=== PATIENT | male | born 1955 | race Caucasian/White ===

== ENCOUNTER 2024-04-12 06:50 | Inpatient (IN) | payer OTHER, MEDICARE ==
[~2024-04-12] VITALS: Ht 182.9 cm; Wt 104.3 kg
[2024-04-12 06:50] VITALS: BP_SYST 199; PULSE 102; RESP 18; TEMP 97.2; O2SAT 98
[2024-04-12] MEDS ORDERED: iohexoL 350 mgI/mL, 100 ML INFUS..BTL IV ONE (07:08)
[2024-04-12] MEDS ORDERED: niCARdipine 25 MG in D5W 240 ML IV PRN (07:15)
[2024-04-12] MEDS ORDERED: SITA100T11 PO (07:27)
[2024-04-12] MEDS ORDERED: EMPA10TA PO (07:27)
[2024-04-12] MEDS ORDERED: LOSA-415 PO (07:27)
[2024-04-12] MEDS ORDERED: NIFE-129 PO (07:27)
[2024-04-12] MEDS ORDERED: LIP40 PO (07:27)
[2024-04-12] MEDS ORDERED: ASA81 PO (07:27)
[2024-04-12] MEDS ORDERED: OMEP20CA15 PO (07:27)
[2024-04-12] MEDS ORDERED: METF-518 PO (07:27)
[2024-04-12] MEDS ORDERED: DICL150D9 TP (07:27)
[2024-04-12] MEDS ORDERED: GLIM2TAB PO (07:27)
[2024-04-12] MEDS ORDERED: NEU300 PO (07:27)
[2024-04-12] MEDS ORDERED: NITSL SL (07:27)
[2024-04-12] MEDS ORDERED: TICA90TA PO (07:27)
[2024-04-12] MEDS ORDERED: LABETALOL HCL 20 MG/4 ML CARTRIDGE IVP ONE (07:33)
[2024-04-12] MEDS: LABETALOL HCL 20 MG/4 ML CARTRIDGE IVP ONE (07:35)
[2024-04-12 07:40] LABS: BASOPHILS % (AUTO) 0.3 % (0.0-2.0); EOSINOPHILS # (AUTO) 0.2 K/uL (0.0-0.4); EOSINOPHILS % (AUTO) 2.9 % (0.0-4.0); HEMATOCRIT 50.1 % (36-54); HEMOGLOBIN 16.6 g/dL (14.0-18.0); LYMPHOCYTES # (AUTO) 2.1 K/uL (1.0-5.5); LYMPHOCYTES % (AUTO) 32.4 % (20.5-51.5); MEAN CORPUSCULAR HEMOGLOBIN 29 pg (27-31); MEAN CORPUSCULAR HGB CONC 33 % (32-36); MEAN CORPUSCULAR VOLUME 89 fL (79.0-98.0); MONOCYTES # (AUTO) 0.7 K/uL (0.0-1.0); MONOCYTES % (AUTO) 11.2 % (1.7-9.3); NEUTROPHILS # (AUTO) 3.5 K/uL (1.8-7.7); NEUTROPHILS % (AUTO) 53.2 % (40.0-70.0); PLATELET COUNT (AUTO) 161 K/uL (130-430); RED BLOOD CELL COUNT(AUTO) 5.64 MIL/uL (4.2-6.2); RED CELL DISTRIBUTION WIDTH 13.7 % (9.0-15.0); WHITE BLOOD COUNT (AUTO) 6.6 K/uL (4.8-10.8)
[2024-04-12] MEDS: ASPIRIN 81 MG TAB.CHEW PO ONE ×2 (08:44→18:30)
[2024-04-12] MEDS: CLOPIDOGREL BISULFATE 75 MG TABLET PO ONE (08:44)
[2024-04-12 08:50] LABS: ALANINE AMINOTRANSFERASE 26 U/L (12-78); ANION GAP 9 (5-15); ASPARTATE AMINOTRANSFERASE 18 U/L (10-37); BILIRUBIN,DIRECT 0.1 mg/dL (0.0-0.3); CALCIUM 8.6 mg/dL (8.4-11.0); CARBON DIOXIDE 28 mmol/L (23-29); CHLORIDE 105 mmol/L (98-107); CREATININE 0.78 mg/dL (0.55-1.30); GFR AFRICAN AMERICAN 127 mL/min (>90); GLUCOSE 162 mg/dL (74-106); POTASSIUM 3.9 mmol/L (3.5-5.1); SODIUM SERUM 142 mmol/L (136-145); TOTAL BILIRUBIN 0.4 mg/dL (0.0-1.0); TOTAL PROTEIN, SERUM 7.4 g/dL (6.4-8.3); UREA NITROGEN, BLOOD 16 mg/dL (8-21)
[2024-04-12 08:52] LABS: GFR NON AFRICAN-AMERICAN 105 mL/min (>90)
[2024-04-12 10:07] VITALS: BP_SYST 155; PULSE 92; RESP 24; TEMP 99; O2SAT 95
[2024-04-12 12:25] VITALS: BP_SYST 163; PULSE 91; RESP 20; TEMP 97.9; O2SAT 96
[2024-04-12 16:00] VITALS: BP_SYST 159; PULSE 88; RESP 24; TEMP 98.1; O2SAT 96
[2024-04-12] MEDS ORDERED: NITROGLYCERIN 0.4 MG TAB.SUBL SL PRN (18:30)
[2024-04-12] MEDS ORDERED: ONDANSETRON HCL 4 MG/2 ML VIAL IVP PRN (18:30)
[2024-04-12] MEDS ORDERED: CLOPIDOGREL BISULFATE 75 MG TABLET PO SCH (18:30)
[2024-04-12] MEDS: LORazepam 2 MG/ML VIAL IVP PRN (19:16)
[2024-04-12 20:30] VITALS: BP_SYST 155; PULSE 87; RESP 20; TEMP 98.1; O2SAT 94
[2024-04-12] MEDS: TICAGRELOR 90 MG TABLET PO SCH (21:00)
[2024-04-12] MEDS ORDERED: DICLOFENAC SODIUM TP SCH (21:00)
[2024-04-12] MEDS: GABAPENTIN 300 MG CAPSULE PO SCH (21:23)
[2024-04-12] MEDS: ATORVASTATIN 20 MG TABLET PO SCH (21:23)
[2024-04-12] MEDS: NORMAL SALINE 5 ML DISP.SYRIN IVF SCH (21:27)
[2024-04-12] MEDS: INSULIN REGULAR, HUMAN 100 UNITS/ML, 3 ML VIAL (humuLIN R) SUBCUT PRN (21:45)
[2024-04-13] VITALS: BP_SYST 144; PULSE 86; RESP 20; TEMP 97.7; O2SAT 94
[2024-04-13 08:00] VITALS: O2SAT 100
[2024-04-13 08:24] LABS: BASOPHILS % (AUTO) 0.2 % (0.0-2.0); EOSINOPHILS # (AUTO) 0.1 K/uL (0.0-0.4); EOSINOPHILS % (AUTO) 1.4 % (0.0-4.0); HEMOGLOBIN 17.6 g/dL (14.0-18.0); LYMPHOCYTES # (AUTO) 1.3 K/uL (1.0-5.5); LYMPHOCYTES % (AUTO) 15.7 % (20.5-51.5); MEAN CORPUSCULAR HEMOGLOBIN 30 pg (27-31); MEAN CORPUSCULAR HGB CONC 33 % (32-36); MEAN CORPUSCULAR VOLUME 89 fL (79.0-98.0); MONOCYTES % (AUTO) 11.9 % (1.7-9.3); NEUTROPHILS # (AUTO) 5.8 K/uL (1.8-7.7); NEUTROPHILS % (AUTO) 70.8 % (40.0-70.0); PLATELET COUNT (AUTO) 171 K/uL (130-430); RED BLOOD CELL COUNT(AUTO) 5.97 MIL/uL (4.2-6.2); RED CELL DISTRIBUTION WIDTH 13.6 % (9.0-15.0); WHITE BLOOD COUNT (AUTO) 8.2 K/uL (4.8-10.8)
[2024-04-13 08:29] VITALS: BP_SYST 125; PULSE 97; RESP 18; TEMP 97.5; O2SAT 100
[2024-04-13 08:46] LABS: CALCIUM 9.4 mg/dL (8.4-11.0); CREATININE 0.77 mg/dL (0.55-1.30); POTASSIUM 3.7 mmol/L (3.5-5.1)
[2024-04-13] MEDS: LOSARTAN POTASSIUM 50 MG TABLET (COZAAR) PO SCH (08:46)
[2024-04-13] MEDS: ASPIRIN 81 MG TAB.CHEW PO SCH (08:47)
[2024-04-13] MEDS: PANTOPRAZOLE SODIUM 40 MG TAB PO SCH (08:47)
[2024-04-13] MEDS: NIFEdipine 30 MG TAB.ER.24 PO SCH (08:47)
[2024-04-13] MEDS: GLIMEPIRIDE 2 MG TABLET PO SCH (08:47)
[2024-04-13] MEDS: EMPAGLIFLOZIN 10 MG TABLET PO SCH (08:49)
[2024-04-13] MEDS: ACETAMINOPHEN 325 MG TABLET PO PRN (14:35)
[2024-04-13 16:00] VITALS: BP_SYST 132; PULSE 89; RESP 17; TEMP 97.9; O2SAT 96
[2024-04-13 20:45] VITALS: BP_SYST 126; PULSE 97; RESP 20; TEMP 98.4; O2SAT 96
[2024-04-14] VITALS (7 sets, daily range): BP systolic 117–140; PULSE 68–97; RESP 16–18; TEMP 97–97.3; O2SAT 95–98
[2024-04-14 06:29] LABS: BASOPHILS % (AUTO) 0.2 % (0.0-2.0); EOSINOPHILS # (AUTO) 0.2 K/uL (0.0-0.4); EOSINOPHILS % (AUTO) 2.7 % (0.0-4.0); HEMATOCRIT 46.6 % (36-54); HEMOGLOBIN 15.6 g/dL (14.0-18.0); LYMPHOCYTES # (AUTO) 1.2 K/uL (1.0-5.5); LYMPHOCYTES % (AUTO) 19.5 % (20.5-51.5); MEAN CORPUSCULAR HEMOGLOBIN 30 pg (27-31); MEAN CORPUSCULAR HGB CONC 33 % (32-36); MEAN CORPUSCULAR VOLUME 88 fL (79.0-98.0); MONOCYTES # (AUTO) 0.7 K/uL (0.0-1.0); MONOCYTES % (AUTO) 11.3 % (1.7-9.3); NEUTROPHILS % (AUTO) 66.3 % (40.0-70.0); PLATELET COUNT (AUTO) 154 K/uL (130-430); RED BLOOD CELL COUNT(AUTO) 5.28 MIL/uL (4.2-6.2); RED CELL DISTRIBUTION WIDTH 13.5 % (9.0-15.0)
[2024-04-14 06:48] LABS: ALBUMIN 3.4 g/dL (3.4-4.8); CALCIUM 8.4 mg/dL (8.4-11.0); CREATININE 0.66 mg/dL (0.55-1.30); POTASSIUM 3.7 mmol/L (3.5-5.1); TOTAL BILIRUBIN 0.6 mg/dL (0.0-1.0); TOTAL PROTEIN, SERUM 6.3 g/dL (6.4-8.3)
== END 2024-04-14 19:02 | disposition home or self-care (01) | DRG 65 ==
LOC: SED 06:50 → STU 08:35
PROVIDERS: ADMIT Preventive Medicine Preventive Medicine/Occupational Environmental Medicine; ATTEND Preventive Medicine Preventive Medicine/Occupational Environmental Medicine
PROC: B3251ZZ Computerized Tomography (CT Scan) of Bilateral Common Carotid Arteries using Low Osmolar Contrast (ICD-10-PCS; principal; 2024-04-12)
PROC: B32G1ZZ Computerized Tomography (CT Scan) of Bilateral Vertebral Arteries using Low Osmolar Contrast (ICD-10-PCS; 2024-04-12)
PROC: B32R1ZZ Computerized Tomography (CT Scan) of Intracranial Arteries using Low Osmolar Contrast (ICD-10-PCS; 2024-04-12)
PROC: B3281ZZ Computerized Tomography (CT Scan) of Bilateral Internal Carotid Arteries using Low Osmolar Contrast (ICD-10-PCS; 2024-04-12)
DX: I63.81 Other cerebral infarction due to occlusion or stenosis of small artery (principal); I69.351 Hemiplegia and hemiparesis following cerebral infarction affecting right dominant side; I10 Essential (primary) hypertension; E78.5 Hyperlipidemia, unspecified; E11.9 Type 2 diabetes mellitus without complications; K21.9 Gastro-esophageal reflux disease without esophagitis; R29.810 Facial weakness; Z95.5 Presence of coronary angioplasty implant and graft; Z90.49 Acquired absence of other specified parts of digestive tract; Z79.899 Other long term (current) drug therapy; Z88.5 Allergy status to narcotic agent; Z79.82 Long term (current) use of aspirin; Z79.84 Long term (current) use of oral hypoglycemic drugs; R29.705 NIHSS score 5; I65.22 Occlusion and stenosis of left carotid artery
CPT/HCPCS: 36415; 70450-TC; 70496; 70498; 70551; 80048; 80053; 80076; 82948; 83880; 84484; 85025; 85379; 93005; 93306; 93880; 97112-GP; 97116-GP; 97530-GP; 99285; G0378; J2060; J7060; Q9967